=== PATIENT | female | born 1935 | race Caucasian/White ===

== ENCOUNTER 2022-10-20 11:30 | Emergency (ER) | payer MEDICARE, BC ==
[2022-10-20] MEDS ORDERED: Sodium Chloride 0.9% 10 ML Syringe FLUSH PRN (11:53)
[2022-10-20 12:12] LABS: BASOPHILS PERCENT AUTO 0.7 % (0.2-1.5); EOSINOPHILS ABSOLUTE AUTO 0.1 x10-3/uL (0.0-0.8); EOSINOPHILS PERCENT AUTO 0.8 % (0.6-8.1); HEMATOCRIT 44.3 % (34.2-48.2); HEMOGLOBIN 15.2 g/dL (11.4-15.5); LYMPHOCYTES ABSOLUTE AUTO 1.2 x10-3/uL (1.0-4.4); MEAN CORPUSCULAR HEMOGLOBIN 31.9 pg (23.9-33.9); MEAN CORPUSCULAR HGB CONC 34.4 g/dL (31.9-34.8); MEAN CORPUSCULAR VOLUME 92.9 fL (76.7-100.5); MEAN PLATELET VOLUME 8.1 fL (7.1-12.4); MONOCYTES ABSOLUTE AUTO 0.7 x10-3/uL (0.3-1.0); MONOCYTES PERCENT AUTO 8.7 % (4.4-15.7); NEUTROPHILS ABSOLUTE AUTO 5.6 x10-3/uL (1.5-6.3); NEUTROPHILS PERCENT AUTO 73.8 % (30.8-76.2); PLATELET COUNT,PLT 242 x10(3)uL (151-488); RED BLOOD CELL COUNT 4.76 x10(6)uL (3.60-5.20); RED CELL DISTRIBUTION WIDTH 12.9 % (12.3-16.5); WHITE BLOOD CELL COUNT,WBC 7.6 x10-3/uL (3.0-10.3)
[2022-10-20 12:16] LABS: BLOOD UREA NITROGEN,BUN 12 mg/dL (7-18); BUN/CREATININE RATIO 17.1 (9-20); CALCIUM 10.8 mg/dL (8.6-10.2); CARBON DIOXIDE,CO2 29 mmol/L (21-32); CHLORIDE,CL 100 mmol/L (100-110); CREATININE 0.7 mg/dL (0.55-1.02); ESTIMATED GFR 83 mL/min (>60); GLUCOSE RANDOM 133 mg/dL (80-116); POTASSIUM,K 3.9 mmol/L (3.5-5.3); SODIUM,NA 137 mmol/L (135-145)
[2022-10-20 12:22] LABS: A/G RATIO 1.1; ALANINE AMINOTRANSFERASE,ALT 25 U/L (12-36); ALBUMIN 3.9 g/dL (2.9-4.5); ALKALINE PHOSPHATASE 66 IU/L (56-112); AMYLASE 37 U/L (25-115); ASPARTATE AMNIOTRANSFERASE,AST 25 IU/L (5-25); MAGNESIUM 1.6 mg/dL (1.8-2.5); PROTEIN TOTAL,TP 7.4 g/dL (6.0-8.0)
[2022-10-20 12:31] LABS: TROPONIN I 27.3 pg/mL (4.0-60.3)
[2022-10-20] MEDS ORDERED: Magnesium Sulfate/Water 2 GM in Premix Bag 1 BAG IV ONE (12:45)
[2022-10-20] MEDS ORDERED: Sodium Chloride 0.9% 1,000 ML IV SCH (13:00)
[2022-10-20] MEDS ORDERED: Iopamidol 755 Mg/ML 75 ML Bottle IV ONE (13:27)
[2022-10-20] MEDS ORDERED: Iopamidol 755 Mg/ML 100 ML Bottle IV ONE (13:29)
[2022-10-20] MEDS ORDERED: Labetalol 20 MG/4 ML Syringe IVPUSH ONE (15:00)
== END 2022-10-20 15:50 | disposition home or self-care (01) ==
LOC: FB.ED 11:30
DX: E83.42 Hypomagnesemia (principal); R00.2 Palpitations; R07.9 Chest pain, unspecified; E78.00 Pure hypercholesterolemia, unspecified; Z79.899 Other long term (current) drug therapy
CPT/HCPCS: 36415; 71045; 71275; 80053; 82150; 83690; 83735; 83880; 84484; 85025; 85379; 93005; 96365; 96366; 96375; 99285; J3475; J3490; J7030; Q9967; 93010; 99283

== ENCOUNTER 2022-11-19 03:43 | Emergency (ER) | payer MEDICARE, BC ==
[2022-11-19] MEDS ORDERED: Sodium Chloride 0.9% 10 ML Syringe FLUSH PRN (03:58)
[2022-11-19] MEDS: hydrALAZINE 20 MG/ML SDV IVPUSH ONE (04:02)
[2022-11-19 04:17] LABS: BASOPHILS ABSOLUTE AUTO 0.1 x10-3/uL (0.0-0.1); EOSINOPHILS ABSOLUTE AUTO 0.3 x10-3/uL (0.0-0.8); EOSINOPHILS PERCENT AUTO 5.6 % (0.6-8.1); HEMATOCRIT 38.3 % (34.2-48.2); HEMOGLOBIN 12.8 g/dL (11.4-15.5); LYMPHOCYTES ABSOLUTE AUTO 1.3 x10-3/uL (1.0-4.4); LYMPHOCYTES PERCENT AUTO 25.3 % (18.4-52.1); MEAN CORPUSCULAR HEMOGLOBIN 31.4 pg (23.9-33.9); MEAN CORPUSCULAR HGB CONC 33.5 g/dL (31.9-34.8); MEAN CORPUSCULAR VOLUME 93.7 fL (76.7-100.5); MEAN PLATELET VOLUME 8.1 fL (7.1-12.4); MONOCYTES ABSOLUTE AUTO 0.6 x10-3/uL (0.3-1.0); MONOCYTES PERCENT AUTO 11.9 % (4.4-15.7); NEUTROPHILS ABSOLUTE AUTO 2.9 x10-3/uL (1.5-6.3); NEUTROPHILS PERCENT AUTO 56.2 % (30.8-76.2); PLATELET COUNT,PLT 226 x10(3)uL (151-488); RED BLOOD CELL COUNT 4.09 x10(6)uL (3.60-5.20); WHITE BLOOD CELL COUNT,WBC 5.1 x10-3/uL (3.0-10.3)
[2022-11-19 04:20] LABS: BLOOD UREA NITROGEN,BUN 15 mg/dL (7-18); BUN/CREATININE RATIO 21.4 (9-20); CALCIUM 9.4 mg/dL (8.6-10.2); CARBON DIOXIDE,CO2 28 mmol/L (21-32); CHLORIDE,CL 104 mmol/L (100-110); CREATININE 0.7 mg/dL (0.55-1.02); ESTIMATED GFR 83 mL/min (>60); GLUCOSE RANDOM 113 mg/dL (80-116); POTASSIUM,K 3.2 mmol/L (3.5-5.3); SODIUM,NA 140 mmol/L (135-145)
[2022-11-19 04:27] LABS: A/G RATIO 1.4; ALANINE AMINOTRANSFERASE,ALT 20 U/L (12-36); ALBUMIN 3.5 g/dL (2.9-4.5); ALKALINE PHOSPHATASE 59 IU/L (56-112); ASPARTATE AMNIOTRANSFERASE,AST 18 IU/L (5-25); BILIRUBIN TOTAL 0.7 mg/dL (0.1-1.3); PROTEIN TOTAL,TP 6.1 g/dL (6.0-8.0)
[2022-11-19 04:33] LABS: TROPONIN I 15.5 pg/mL (4.0-60.3)
[2022-11-19] MEDS: LORazepam 2 MG/ML SDV IVPUSH ONE (04:55)
== END 2022-11-19 06:51 | disposition home or self-care (01) ==
LOC: FB.ED 03:43
DX: R07.9 Chest pain, unspecified (principal); I10 Essential (primary) hypertension; F41.9 Anxiety disorder, unspecified; Z79.82 Long term (current) use of aspirin
CPT/HCPCS: 36415; 71045; 80053; 83880; 84484; 85025; 93005; 96374; 96375; 99285; J0360; J2060

== ENCOUNTER 2022-11-19 18:12 | Observation (INO) | payer MEDICARE, BC ==
[2022-11-19] MEDS ORDERED: Sodium Chloride 0.9% 10 ML Syringe FLUSH PRN (18:53)
[2022-11-19] MEDS ORDERED: Sodium Chloride 0.9% 500 ML IV ONE (18:53)
[2022-11-19] MEDS ORDERED: Ondansetron 4 MG/2 ML SDV IVPUSH ONE (18:53)
[2022-11-19 19:22] LABS: HEMATOCRIT 43.9 % (34.2-48.2); MEAN CORPUSCULAR HGB CONC 34.2 g/dL (31.9-34.8); MEAN CORPUSCULAR VOLUME 93.5 fL (76.7-100.5); MEAN PLATELET VOLUME 8.1 fL (7.1-12.4); PLATELET COUNT,PLT 232 x10(3)uL (151-488); RED CELL DISTRIBUTION WIDTH 13.1 % (12.3-16.5); WHITE BLOOD CELL COUNT,WBC 9.2 x10-3/uL (3.0-10.3)
[2022-11-19 19:30] LABS: BLOOD UREA NITROGEN,BUN 12 mg/dL (7-18); BUN/CREATININE RATIO 17.1 (9-20); CALCIUM 9.3 mg/dL (8.6-10.2); CARBON DIOXIDE,CO2 27 mmol/L (21-32); CHLORIDE,CL 99 mmol/L (100-110); CREATININE 0.7 mg/dL (0.55-1.02); ESTIMATED GFR 83 mL/min (>60); GLUCOSE RANDOM 146 mg/dL (80-116); SODIUM,NA 137 mmol/L (135-145)
[2022-11-19 19:36] LABS: BILIRUBIN,URINE NEGATIVE (NEGATIVE); GLUCOSE,URINE NORMAL (NORMAL); KETONES,URINE 50 mg/dL (NEGATIVE); LEUKOCYTE ESTERASE,URINE NEGATIVE (NEGATIVE); NITRITE,URINE NEGATIVE (NEGATIVE); OCCULT BLOOD,URINE MODERATE (NEGATIVE); PROTEIN,URINE NEGATIVE (NEGATIVE); UROBILINOGEN,URINE NORMAL (NEGATIVE)
[2022-11-19 19:36] LABS: A/G RATIO 1.3; ALANINE AMINOTRANSFERASE,ALT 25 U/L (12-36); ALKALINE PHOSPHATASE 64 IU/L (56-112); ASPARTATE AMNIOTRANSFERASE,AST 24 IU/L (5-25); MAGNESIUM 1.6 mg/dL (1.8-2.5); PROTEIN TOTAL,TP 7.2 g/dL (6.0-8.0)
[2022-11-19 19:38] LABS: C-REACTIVE PROTEIN 0.07 mg/dL (<0.33); TROPONIN I 26.2 pg/mL (4.0-60.3)
[2022-11-19 19:46] LABS: LYMPHOCYTES PERCENT MAN 8 % (13-37); MONOCYTES PERCENT MAN 2 % (4-12); SEG NEUTROPHILS PERCENT MAN 90 % (46-82)
[2022-11-19 19:46] LABS: APPEARANCE,URINE CLEAR (CLEAR); BACTERIA,URINE OCCASIONAL (NS); COLOR,URINE YELLOW (YELLOW); SQUAMOUS EPITHELIAL CELLS,UR OCCASIONAL (NS,R,O); WBC,URINE 0-5 (0-5)
[2022-11-19 19:48] LABS: SEDIMENTATION RATE MANUAL 5 mm/hr (0-20)
[2022-11-19] MEDS ORDERED: Losartan 50 MG Tab PO ONE (19:52)
[2022-11-19] MEDS ORDERED: Diltiazem 120 MG Cap.CD PO ONE (19:52)
[2022-11-19] MEDS ORDERED: Metoprolol Tartrate 50 MG Tab PO ONE (19:52)
[2022-11-19] MEDS ORDERED: Potassium Chloride 20 MEQ Tab.ER PO ONE (20:13)
[2022-11-19] MEDS ORDERED: Metoclopramide 10 MG/2 ML SDV IVPUSH ONE (20:13)
[2022-11-19] MEDS ORDERED: Ketorolac 30 MG/ML SDV IVPUSH ONE (20:13)
[2022-11-19] MEDS ORDERED: Magnesium Sulfate/Water 2 GM in Premix Bag 1 BAG IV ONE (20:20)
[2022-11-19] MEDS: Sodium Chloride 0.9% 1,000 ML IV SCH (20:30)
[2022-11-19] MEDS ORDERED: Acetaminophen 325 MG Tab PO PRN (22:14)
[2022-11-19] MEDS ORDERED: Ondansetron 4 MG/2 ML SDV IV PRN (22:14)
[2022-11-19 22:17] LABS: INFLUENZA A NAA NEGATIVE (NEGATIVE); INFLUENZA B NAA NEGATIVE (NEGATIVE); RESPIRATORY SYNCYTIAL VIR NAA NEGATIVE (NEGATIVE)
[2022-11-19] MEDS ORDERED: Melatonin 3 MG Tab PO PRN (22:17)
[2022-11-19 22:19] LABS: CORONAVIRUS COVID-19 NAA NEGATIVE (NEGATIVE)
[2022-11-20] MEDS ORDERED: Potassium Chloride 20 MEQ Tab.ER PO ONE
[2022-11-20] MEDS: Sodium Chloride 0.9% 1,000 ML IV SCH (06:12)
[2022-11-20 06:30] LABS: BASOPHILS ABSOLUTE AUTO 0.1 x10-3/uL (0.0-0.1); BASOPHILS PERCENT AUTO 0.6 % (0.2-1.5); EOSINOPHILS ABSOLUTE AUTO 0.1 x10-3/uL (0.0-0.8); EOSINOPHILS PERCENT AUTO 1.2 % (0.6-8.1); HEMATOCRIT 38.3 % (34.2-48.2); HEMOGLOBIN 12.8 g/dL (11.4-15.5); LYMPHOCYTES ABSOLUTE AUTO 1.1 x10-3/uL (1.0-4.4); MEAN CORPUSCULAR HEMOGLOBIN 31.7 pg (23.9-33.9); MEAN CORPUSCULAR HGB CONC 33.5 g/dL (31.9-34.8); MEAN CORPUSCULAR VOLUME 94.8 fL (76.7-100.5); MEAN PLATELET VOLUME 8.1 fL (7.1-12.4); MONOCYTES PERCENT AUTO 11.7 % (4.4-15.7); NEUTROPHILS ABSOLUTE AUTO 6.2 x10-3/uL (1.5-6.3); NEUTROPHILS PERCENT AUTO 73.5 % (30.8-76.2); PLATELET COUNT,PLT 218 x10(3)uL (151-488); RED BLOOD CELL COUNT 4.04 x10(6)uL (3.60-5.20); RED CELL DISTRIBUTION WIDTH 12.8 % (12.3-16.5); WHITE BLOOD CELL COUNT,WBC 8.4 x10-3/uL (3.0-10.3)
[2022-11-20 07:08] LABS: BLOOD UREA NITROGEN,BUN 12 mg/dL (7-18); BUN/CREATININE RATIO 17.1 (9-20); CALCIUM 8.4 mg/dL (8.6-10.2); CARBON DIOXIDE,CO2 28 mmol/L (21-32); CHLORIDE,CL 107 mmol/L (100-110); CREATININE 0.7 mg/dL (0.55-1.02); ESTIMATED GFR 83 mL/min (>60); GLUCOSE RANDOM 98 mg/dL (80-116); SODIUM,NA 140 mmol/L (135-145)
[2022-11-20] MEDS ORDERED: Metoprolol Tartrate 50 MG Tab PO SCH (09:00)
== END 2022-11-20 09:30 | disposition home or self-care (01) ==
LOC: FB.ED 18:12 → FB.MS 22:03 → UNDOADMOB 22:03 → FB.MS 22:30
PROVIDERS: ADMIT Family Medicine; ATTEND Family Medicine
DX: R11.2 Nausea with vomiting, unspecified (principal); E86.0 Dehydration; R19.7 Diarrhea, unspecified; R51.9 Headache, unspecified; E87.6 Hypokalemia; I10 Essential (primary) hypertension; I48.91 Unspecified atrial fibrillation; E78.00 Pure hypercholesterolemia, unspecified; R07.9 Chest pain, unspecified; I20.9 Angina pectoris, unspecified; K21.9 Gastro-esophageal reflux disease without esophagitis; M54.9 Dorsalgia, unspecified; G89.29 Other chronic pain; M81.0 Age-related osteoporosis without current pathological fracture; F41.9 Anxiety disorder, unspecified; F32.A Depression, unspecified; Z79.899 Other long term (current) drug therapy; Z20.822 Contact with and (suspected) exposure to COVID-19; Z79.82 Long term (current) use of aspirin; Z88.1 Allergy status to other antibiotic agents; Z88.8 Allergy status to other drugs, medicaments and biological substances; Z88.2 Allergy status to sulfonamides; Z90.49 Acquired absence of other specified parts of digestive tract; Z90.710 Acquired absence of both cervix and uterus
CPT/HCPCS: 0241U; 36415; 70450; 71045; 80048; 80053; 81001; 83735; 83880; 84484; 85025; 85651; 86140; 93005; 96361; 96365; 96374; 96375; 99285-25; A9270-GY; G0378; J0360; J1885; J2060; J2405; J2765; J3475; J7030; J7040

== ENCOUNTER 2023-02-18 12:07 | Inpatient (IN) | payer MEDICARE, BC ==
[2023-02-18 12:50] LABS: BASOPHILS PERCENT AUTO 0.8 % (0.2-1.5); EOSINOPHILS ABSOLUTE AUTO 0.1 x10-3/uL (0.0-0.8); EOSINOPHILS PERCENT AUTO 2.1 % (0.6-8.1); HEMATOCRIT 41.9 % (34.2-48.2); HEMOGLOBIN 14.2 g/dL (11.4-15.5); LYMPHOCYTES ABSOLUTE AUTO 1.1 x10-3/uL (1.0-4.4); LYMPHOCYTES PERCENT AUTO 22.8 % (18.4-52.1); MEAN CORPUSCULAR HEMOGLOBIN 31.8 pg (23.9-33.9); MEAN CORPUSCULAR HGB CONC 33.9 g/dL (31.9-34.8); MEAN CORPUSCULAR VOLUME 93.9 fL (76.7-100.5); MEAN PLATELET VOLUME 7.7 fL (7.1-12.4); MONOCYTES ABSOLUTE AUTO 0.5 x10-3/uL (0.3-1.0); MONOCYTES PERCENT AUTO 11.3 % (4.4-15.7); PLATELET COUNT,PLT 291 x10(3)uL (151-488); RED BLOOD CELL COUNT 4.47 x10(6)uL (3.60-5.20); RED CELL DISTRIBUTION WIDTH 12.6 % (12.3-16.5); WHITE BLOOD CELL COUNT,WBC 4.8 x10-3/uL (3.0-10.3)
[2023-02-18 12:56] LABS: BLOOD UREA NITROGEN,BUN 20 mg/dL (7-18); CALCIUM 10.6 mg/dL (8.6-10.2); CARBON DIOXIDE,CO2 32 mmol/L (21-32); CHLORIDE,CL 98 mmol/L (100-110); CREATININE 0.8 mg/dL (0.55-1.02); ESTIMATED GFR 70 mL/min (>60); GLUCOSE RANDOM 109 mg/dL (80-116); POTASSIUM,K 4.7 mmol/L (3.5-5.3); SODIUM,NA 135 mmol/L (135-145)
[2023-02-18 13:01] LABS: A/G RATIO 0.8; ALANINE AMINOTRANSFERASE,ALT 24 U/L (12-36); ALBUMIN 3.2 g/dL (2.9-4.5); ALKALINE PHOSPHATASE 75 IU/L (56-112); ASPARTATE AMNIOTRANSFERASE,AST 16 IU/L (5-25); BILIRUBIN TOTAL 0.3 mg/dL (0.1-1.3); PROTEIN TOTAL,TP 7.1 g/dL (6.0-8.0)
[2023-02-18] MEDS ORDERED: Sodium Chloride 0.9% 1,000 ML IV ONE (14:00)
[2023-02-18] MEDS ORDERED: cefTRIAXone 2 GM Vial IVPUSH ONE (14:09)
[2023-02-18] MEDS: Sodium Chloride 0.9% 10 ML Syringe FLUSH PRN (14:15)
[2023-02-18 14:23] LABS: BILIRUBIN,URINE NEGATIVE (NEGATIVE); GLUCOSE,URINE NORMAL (NORMAL); KETONES,URINE NEGATIVE (NEGATIVE); LEUKOCYTE ESTERASE,URINE NEGATIVE (NEGATIVE); NITRITE,URINE NEGATIVE (NEGATIVE); OCCULT BLOOD,URINE NEGATIVE (NEGATIVE); PROTEIN,URINE NEGATIVE (NEGATIVE); UROBILINOGEN,URINE NORMAL (NEGATIVE)
[2023-02-18 14:33] LABS: APPEARANCE,URINE CLEAR (CLEAR); BACTERIA,URINE FEW (NS); COLOR,URINE YELLOW (YELLOW); MUCUS,URINE FEW (NS); RBC,URINE 0-5 (0-5); SQUAMOUS EPITHELIAL CELLS,UR MODERATE (NS,R,O); WBC,URINE 0-5 (0-5)
[2023-02-18] MEDS ORDERED: Ondansetron 4 MG/2 ML SDV IV PRN (16:10)
[2023-02-18] MEDS: Acetaminophen 325 MG Tab PO PRN (16:40)
[2023-02-18] MEDS: Sodium Chloride 0.9% 1,000 ML IV SCH (17:00)
[2023-02-18] MEDS: Doxycycline 100 MG in Sodium Chloride 0.9% 100 ML IV SCH (17:21)
[2023-02-18] MEDS: Enoxaparin 40 MG/0.4 ML Syringe SUBCUT SCH (17:31)
[2023-02-18] MEDS: Metoprolol Tartrate 50 MG Tab PO SCH (17:35)
[2023-02-18] MEDS ORDERED: Sodium Chloride 0.9% 250 ML IV ONE (17:51)
[2023-02-18] MEDS ORDERED: hydrOXYzine HCl 10 MG Tab PO PRN (19:30)
[2023-02-18] MEDS ORDERED: LORazepam 0.5 MG Tab PO PRN (19:30)
[2023-02-18] MEDS: Losartan 100 MG Tab PO SCH (20:15)
[2023-02-18] MEDS: Latanoprost 0.005% Ophth Soln 2.5 ML Bottle EYEBOTH SCH (20:16)
[2023-02-18] MEDS: Famotidine/Normal Saline 20 MG in Premix Bag 1 BAG IV SCH (20:24)
[2023-02-18] MEDS ORDERED: Famotidine 20 MG/2 ML SDV IVPUSH SCH (21:00)
[2023-02-19] MEDS: Doxycycline 100 MG in Sodium Chloride 0.9% 100 ML IV SCH ×2 (04:18→16:19)
[2023-02-19] MEDS: Sodium Chloride 0.9% 1,000 ML IV SCH (04:56)
[2023-02-19 06:37] LABS: HEMATOCRIT 38.3 % (34.2-48.2); MEAN CORPUSCULAR HEMOGLOBIN 31.7 pg (23.9-33.9); MEAN CORPUSCULAR HGB CONC 33.9 g/dL (31.9-34.8); MEAN CORPUSCULAR VOLUME 93.6 fL (76.7-100.5); PLATELET COUNT,PLT 194 x10(3)uL (151-488); RED CELL DISTRIBUTION WIDTH 12.6 % (12.3-16.5); WHITE BLOOD CELL COUNT,WBC 10.6 x10-3/uL (3.0-10.3)
[2023-02-19 06:43] LABS: BLOOD UREA NITROGEN,BUN 25 mg/dL (7-18); BUN/CREATININE RATIO 15.6 (9-20); CARBON DIOXIDE,CO2 26 mmol/L (21-32); CHLORIDE,CL 103 mmol/L (100-110); CREATININE 1.6 mg/dL (0.55-1.02); EST CRCL DRUG DOSING (CG) 19.72 mL/min; ESTIMATED GFR 31 mL/min (>60); GLUCOSE RANDOM 96 mg/dL (80-116); POTASSIUM,K 4.4 mmol/L (3.5-5.3); SODIUM,NA 137 mmol/L (135-145)
[2023-02-19 06:55] LABS: BAND PERCENT MAN 10 % (0-6); LYMPHOCYTES PERCENT MAN 9 % (13-37); MONOCYTES PERCENT MAN 5 % (4-12); SEG NEUTROPHILS PERCENT MAN 76 % (46-82)
[2023-02-19] MEDS: Famotidine/Normal Saline 20 MG in Premix Bag 1 BAG IV SCH ×2 (08:19→20:46)
[2023-02-19] MEDS: Metoprolol Tartrate 50 MG Tab PO SCH ×2 (08:21→20:47)
[2023-02-19] MEDS: Multivitamin Tab PO SCH (08:35)
[2023-02-19] MEDS: Acetaminophen 325 MG Tab PO PRN ×2 (11:54→17:40)
[2023-02-19] MEDS: cefTRIAXone 2 GM Vial IVPUSH SCH (13:51)
[2023-02-19] MEDS: Sodium Chloride 0.9% 10 ML Syringe FLUSH PRN ×3 (14:37→21:01)
[2023-02-19] MEDS: Enoxaparin 40 MG/0.4 ML Syringe SUBCUT SCH (16:23)
[2023-02-19] MEDS ORDERED: Labetalol 20 MG/4 ML Syringe IVPUSH ONE (16:28)
[2023-02-19] MEDS: Losartan 100 MG Tab PO SCH (20:47)
[2023-02-19] MEDS: Latanoprost 0.005% Ophth Soln 2.5 ML Bottle EYEBOTH SCH (20:47)
[2023-02-20] MEDS: Doxycycline 100 MG in Sodium Chloride 0.9% 100 ML IV SCH ×2 (04:03→17:03)
[2023-02-20] MEDS: Sodium Chloride 0.9% 10 ML Syringe FLUSH PRN (05:30)
[2023-02-20 07:15] LABS: BASOPHILS PERCENT AUTO 0.2 % (0.2-1.5); EOSINOPHILS PERCENT AUTO 0.5 % (0.6-8.1); HEMATOCRIT 38.6 % (34.2-48.2); HEMOGLOBIN 13.2 g/dL (11.4-15.5); LYMPHOCYTES ABSOLUTE AUTO 0.8 x10-3/uL (1.0-4.4); LYMPHOCYTES PERCENT AUTO 9.2 % (18.4-52.1); MEAN CORPUSCULAR HEMOGLOBIN 31.9 pg (23.9-33.9); MEAN CORPUSCULAR HGB CONC 34.2 g/dL (31.9-34.8); MEAN CORPUSCULAR VOLUME 93.5 fL (76.7-100.5); MEAN PLATELET VOLUME 8.4 fL (7.1-12.4); MONOCYTES ABSOLUTE AUTO 0.9 x10-3/uL (0.3-1.0); MONOCYTES PERCENT AUTO 10.5 % (4.4-15.7); NEUTROPHILS ABSOLUTE AUTO 7.1 x10-3/uL (1.5-6.3); NEUTROPHILS PERCENT AUTO 79.6 % (30.8-76.2); PLATELET COUNT,PLT 195 x10(3)uL (151-488); RED BLOOD CELL COUNT 4.13 x10(6)uL (3.60-5.20); WHITE BLOOD CELL COUNT,WBC 8.9 x10-3/uL (3.0-10.3)
[2023-02-20 07:31] LABS: A/G RATIO 0.8; ALBUMIN 2.9 g/dL (2.9-4.5); ALKALINE PHOSPHATASE 91 IU/L (56-112); ASPARTATE AMNIOTRANSFERASE,AST 108 IU/L (5-25); BILIRUBIN TOTAL 0.4 mg/dL (0.1-1.3); BLOOD UREA NITROGEN,BUN 28 mg/dL (7-18); BUN/CREATININE RATIO 12.2 (9-20); CALCIUM 9.3 mg/dL (8.6-10.2); CARBON DIOXIDE,CO2 27 mmol/L (21-32); CHLORIDE,CL 100 mmol/L (100-110); EST CRCL DRUG DOSING (CG) 13.72 mL/min; ESTIMATED GFR 20 mL/min (>60); GLUCOSE RANDOM 94 mg/dL (80-116); PROTEIN TOTAL,TP 6.5 g/dL (6.0-8.0); SODIUM,NA 135 mmol/L (135-145)
[2023-02-20 07:37] LABS: ALANINE AMINOTRANSFERASE,ALT 193 U/L (12-36); CREATININE 2.3 mg/dL (0.55-1.02)
[2023-02-20] MEDS ORDERED: Latanoprost 0.005% Ophth Soln 2.5 ML Bottle EYEBOTH SCH (07:43)
[2023-02-20] MEDS: Potassium Chloride 20 MEQ Tab.ER PO SCH (09:19)
[2023-02-20] MEDS: Metoprolol Tartrate 50 MG Tab PO SCH ×2 (09:19→20:00)
[2023-02-20] MEDS: Spironolactone 25 MG Tab PO SCH (09:19)
[2023-02-20] MEDS: Multivitamin Tab PO SCH (09:20)
[2023-02-20] MEDS: Famotidine/Normal Saline 20 MG in Premix Bag 1 BAG IV SCH (09:22)
[2023-02-20] MEDS: cefTRIAXone 2 GM Vial IVPUSH SCH (13:47)
[2023-02-20] MEDS ORDERED: hydrALAZINE 25 MG Tab PO ONE (16:21)
[2023-02-20] MEDS: Enoxaparin 40 MG/0.4 ML Syringe SUBCUT SCH (17:16)
[2023-02-20] MEDS: Losartan 100 MG Tab PO SCH (19:59)
[2023-02-20] MEDS ORDERED: Diltiazem 180 MG Cap.CD PO SCH (21:00)
[2023-02-21] MEDS: Doxycycline 100 MG in Sodium Chloride 0.9% 100 ML IV SCH (04:47)
[2023-02-21] MEDS: Sodium Chloride 0.9% 10 ML Syringe FLUSH PRN (06:04)
[2023-02-21 07:04] LABS: BLOOD UREA NITROGEN,BUN 26 mg/dL (7-18); BUN/CREATININE RATIO 14.4 (9-20); CALCIUM 9.8 mg/dL (8.6-10.2); CARBON DIOXIDE,CO2 26 mmol/L (21-32); CHLORIDE,CL 102 mmol/L (100-110); CREATININE 1.8 mg/dL (0.55-1.02); EST CRCL DRUG DOSING (CG) 17.53 mL/min; ESTIMATED GFR 27 mL/min (>60); GLUCOSE RANDOM 98 mg/dL (80-116); POTASSIUM,K 4.3 mmol/L (3.5-5.3); SODIUM,NA 135 mmol/L (135-145)
[2023-02-21] MEDS: Spironolactone 25 MG Tab PO SCH (08:14)
[2023-02-21] MEDS: Multivitamin Tab PO SCH (08:14)
[2023-02-21] MEDS: Potassium Chloride 20 MEQ Tab.ER PO SCH (08:14)
[2023-02-21] MEDS: Metoprolol Tartrate 50 MG Tab PO SCH (08:15)
[2023-02-21] MEDS ORDERED: Famotidine 10 MG Tab PO SCH (09:00)
[2023-02-21 13:21] VITALS: BP 179/92; PULSE 64
== END 2023-02-21 13:10 | disposition home or self-care (01) | DRG 682 ==
LOC: FB.ED 12:07 → FB.MS 16:20
PROVIDERS: ADMIT Family Medicine; ATTEND Family Medicine
PROC: 8E0ZXY6 Isolation (ICD-10-PCS; principal; 2023-02-18)
DX: N17.9 Acute kidney failure, unspecified (principal); J13 Pneumonia due to Streptococcus pneumoniae; U07.1 COVID-19; I51.81 Takotsubo syndrome; Z51.5 Encounter for palliative care; I10 Essential (primary) hypertension; E86.0 Dehydration; Z66 Do not resuscitate; I48.91 Unspecified atrial fibrillation; G43.909 Migraine, unspecified, not intractable, without status migrainosus; F32.A Depression, unspecified; K21.9 Gastro-esophageal reflux disease without esophagitis; R74.01 Elevation of levels of liver transaminase levels; F43.22 Adjustment disorder with anxiety; E78.00 Pure hypercholesterolemia, unspecified; Z88.1 Allergy status to other antibiotic agents; Z88.8 Allergy status to other drugs, medicaments and biological substances; Z88.2 Allergy status to sulfonamides; Z86.73 Personal history of transient ischemic attack (TIA), and cerebral infarction without residual deficits; Z79.01 Long term (current) use of anticoagulants; Z85.828 Personal history of other malignant neoplasm of skin; Z98.42 Cataract extraction status, left eye; Z98.41 Cataract extraction status, right eye; Z90.89 Acquired absence of other organs; Z98.890 Other specified postprocedural states; Z90.49 Acquired absence of other specified parts of digestive tract; Z90.710 Acquired absence of both cervix and uterus; Z90.722 Acquired absence of ovaries, bilateral
CPT/HCPCS: 36415; 71045; 80048; 80053; 81001; 83735; 83880; 84484; 85025; 93005; 99222; 99232; 99238; A9270-GY; J0696; J1650; J2405; J3490; J7030; J7050

== ENCOUNTER 2023-06-13 12:06 | Emergency (ER) | payer MEDICARE, BC ==
[2023-06-13] MEDS ORDERED: Sodium Chloride 0.9% 10 ML Syringe FLUSH PRN (12:38)
[2023-06-13] MEDS: Sodium Chloride 0.9% 500 ML IV ONE (12:48)
[2023-06-13] MEDS: Prochlorperazine 10 MG/2 ML SDV IVPUSH ONE (12:52)
[2023-06-13] MEDS: diphenhydrAMINE 50 MG/ML SDV IVPUSH ONE (12:52)
[2023-06-13 12:54] LABS: BASOPHILS PERCENT AUTO 0.5 % (0.2-1.5); EOSINOPHILS ABSOLUTE AUTO 0.1 x10-3/uL (0.0-0.8); EOSINOPHILS PERCENT AUTO 1.8 % (0.6-8.1); HEMATOCRIT 41.9 % (34.2-48.2); HEMOGLOBIN 14.7 g/dL (11.4-15.5); LYMPHOCYTES ABSOLUTE AUTO 1.5 x10-3/uL (1.0-4.4); LYMPHOCYTES PERCENT AUTO 18.9 % (18.4-52.1); MEAN CORPUSCULAR HEMOGLOBIN 32.7 pg (23.9-33.9); MEAN CORPUSCULAR VOLUME 93.4 fL (76.7-100.5); MEAN PLATELET VOLUME 7.7 fL (7.1-12.4); MONOCYTES ABSOLUTE AUTO 0.8 x10-3/uL (0.3-1.0); NEUTROPHILS ABSOLUTE AUTO 5.5 x10-3/uL (1.5-6.3); NEUTROPHILS PERCENT AUTO 68.8 % (30.8-76.2); PLATELET COUNT,PLT 266 x10(3)uL (151-488); RED BLOOD CELL COUNT 4.49 x10(6)uL (3.60-5.20); RED CELL DISTRIBUTION WIDTH 12.6 % (12.3-16.5)
[2023-06-13 12:55] LABS: BLOOD UREA NITROGEN,BUN 26 mg/dL (7-18); BUN/CREATININE RATIO 28.9 (9-20); CALCIUM 10.1 mg/dL (8.6-10.2); CARBON DIOXIDE,CO2 26 mmol/L (21-32); CHLORIDE,CL 98 mmol/L (100-110); CREATININE 0.9 mg/dL (0.55-1.02); ESTIMATED GFR 61 mL/min (>60); GLUCOSE RANDOM 108 mg/dL (80-116); POTASSIUM,K 4.6 mmol/L (3.5-5.3); SODIUM,NA 133 mmol/L (135-145)
[2023-06-13 13:01] LABS: ALANINE AMINOTRANSFERASE,ALT 28 U/L (12-36); ALBUMIN 3.8 g/dL (2.9-4.5); ALKALINE PHOSPHATASE 65 IU/L (56-112); ASPARTATE AMNIOTRANSFERASE,AST 20 IU/L (5-25); BILIRUBIN TOTAL 0.8 mg/dL (0.1-1.3); PROTEIN TOTAL,TP 7.6 g/dL (6.0-8.0)
[2023-06-13 13:12] LABS: SEDIMENTATION RATE MANUAL 6 mm/hr (0-20)
[2023-06-13] MEDS: Sodium Chloride 0.9% 1,000 ML IV SCH (13:30)
== END 2023-06-13 14:36 | disposition home or self-care (01) ==
LOC: FB.ED 12:06
DX: G43.109 Migraine with aura, not intractable, without status migrainosus (principal); E86.0 Dehydration; E78.00 Pure hypercholesterolemia, unspecified; I10 Essential (primary) hypertension; M81.0 Age-related osteoporosis without current pathological fracture; Z88.8 Allergy status to other drugs, medicaments and biological substances; Z88.2 Allergy status to sulfonamides; Z88.1 Allergy status to other antibiotic agents; Z79.82 Long term (current) use of aspirin; Z79.899 Other long term (current) drug therapy; Z86.19 Personal history of other infectious and parasitic diseases; Z90.49 Acquired absence of other specified parts of digestive tract; Z90.710 Acquired absence of both cervix and uterus
CPT/HCPCS: 36415; 70450; 80053; 83735; 85025; 85651; 86140; 96361; 96374; 96375; 99284; J0780; J1200; J7030; J7040